=== PATIENT | male | born 1965 | race Caucasian/White ===

== ENCOUNTER 2016-12-10 04:24 | Emergency (ER) | payer MEDICAID ==
--- NOTE | ~2016-12-10 | CR253 ---
[facility] A Service of [facility] / [facility] RADIOLOGY TEXT RESULTS PATIENT: OZ CHERRY LOCATION: [facility] : 63 UNIT #: [id number] AGE: [address]: Mahamed Farias MD SEX: M ORDER DR: [id number] [facility] [address] [place], [place] [address] [id number] MR#: [id number] Acc #: [id number] NAME: OZ CHERRY : 1965 SEX: M STUDY DATE/TIME: 12/10/2016 4:54 UNIT: [facility] ROOM: STUDY DESCRIPTION: CR Tibia and Fibula 2 Views Rt Attending Physician: Roxie Hale A.P.R.N. Ordering Physician: Roxie Hale A.P.R.N. Primary Care Physician: Primary Care Physician No MEDICAL IMAGING REPORT This report is preliminary unless electronic signature is present EXAM Right tibia-fibula series 12/10/2016 HISTORY 51-year-old male in the ED complaining of right lower leg, ankle and foot pain after fall from ladder earlier today. TECHNIQUE AP and lateral radiographs of the right tibia and fibula. FINDINGS The examination is negative. No fracture or other acute osseous abnormality is demonstrated. Ankle is more completely included on separately reported ankle series. IMPRESSION Negative right tibia-fibula series. Dictated by... Hunter Bangura M.D. THIS IS AN ELECTRONICALLY VERIFIED REPORT Hunter Bangura M.D. at 12/17/2016 1:57 PM KOURTNEY/mike TD: 12/10/2016 06:37 JOB #: [id number] MEDICAL IMAGING REPORT Page 1 of 1 COPY
--- NOTE | ~2016-12-10 | CR21 ---
[facility] A Service of [facility] RADIOLOGY TEXT RESULTS PATIENT: OZ CHERRY LOCATION: [facility] : 63 UNIT #: [id number] AGE: [address]: Mahamed Farias MD SEX: M ORDER DR: [id number] [facility] [address] [place] [address] [place], [place] [address] [id number] MR#: [id number] Acc #: [id number] NAME: OZ CHERRY : 1965 SEX: M STUDY DATE/TIME: 12/10/2016 4:56 UNIT: [facility] ROOM: STUDY DESCRIPTION: CR Ankle Min 3 Views Rt Attending Physician: Roxie Hale A.P.R.N. Ordering Physician: Roxie Hale A.P.R.N. Primary Care Physician: Primary Care Physician No MEDICAL IMAGING REPORT This report is preliminary unless electronic signature is present EXAM Right ankle series 12/10/2016 HISTORY 51-year-old male in the ED complaining of right foot and ankle pain after fall from ladder earlier today. TECHNIQUE Three-view right ankle series. FINDINGS No fracture, dislocation or other acute osseous abnormality is demonstrated. IMPRESSION Negative right ankle series. Dictated by... Hunter Bangura M.D. THIS IS AN ELECTRONICALLY VERIFIED REPORT Hunter Bangura M.D. at 12/17/2016 1:57 PM KOURTNEY/mike TD: 12/10/2016 06:38 JOB #: [id number] MEDICAL IMAGING REPORT Page 1 of 1 COPY
--- NOTE | ~2016-12-10 | CR127 ---
[facility] A Service of [facility] RADIOLOGY TEXT RESULTS PATIENT: OZ CHERRY LOCATION: [facility] : 63 UNIT #: [id number] AGE: [address]: Mahamed Farias MD SEX: M ORDER DR: [id number] [facility] [address] [place], [place] [address] [id number] E MR#: [id number] Acc #: [id number] NAME: OZ CHERRY : 1965 SEX: M STUDY DATE/TIME: 12/10/2016 5:01 UNIT: [facility] ROOM: STUDY DESCRIPTION: CR Foot Complete Min 3 View Rt Attending Physician: Roxie Hale A.P.R.N. Ordering Physician: Roxie Hale A.P.R.N. Primary Care Physician: Primary Care Physician No MEDICAL IMAGING REPORT This report is preliminary unless electronic signature is present EXAM Right foot series 12/10/2016 HISTORY 51-year-old male in the ED complaining of right foot and ankle pain after fall from ladder earlier today. TECHNIQUE Three-view right foot series. FINDINGS No fracture, dislocation or other acute osseous abnormality is demonstrated. 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 IMPRESSION No acute osseous abnormality. Dictated by... Hunter Bangura M.D. THIS IS AN ELECTRONICALLY VERIFIED REPORT Hunter Bangura M.D. at 12/17/2016 1:57 PM KOURTNEY/mike TD: 12/10/2016 06:39 JOB #: [id number] MEDICAL IMAGING REPORT Page 1 of 1 COPY
[2016-12-10 06:13] LABS: BASOPHIL# 0.1 X10e3 (0-0.3); BASOPHIL% 0.4 % (0-2.5); EOSINOPHIL# 0.1 X10e3 (0-0.7); EOSINOPHIL% 0.8 % (0.0-7.0); HEMATOCRIT 45.5 % (38.0-50.0); HEMOGLOBIN 15.1 gm/dL (13.0-16.0); LYMPHOCYTE% 21.4 % (17.0-45.0); MEAN CELL VOLUME 99.9 FL (83-96); MEAN CORPUSCULAR HEMOGLOBIN 33.1 PG (28-34); MEAN CORPUSCULAR HGB CONC 33.2 g/dL (30-36); MEAN PLATELET VOLUME 7.8 FL (6.5-11.5); MONOCYTE# 1.1 X10e3 (0-1.0); MONOCYTE% 7.9 % (3.0-12.0); NEUTROPHIL# 9.9 X10e3 (1.5-7.1); NEUTROPHIL% 69.5 % (40-75); PLATELET COUNT 231 X10e3 (140-420); RED BLOOD COUNT 4.56 X10e (3.90-5.60); RED CELL DISTRIBUTION WIDTH 13.1 % (11.0-15.5); WHITE BLOOD COUNT 14.2 X10e3 (4.0-10.5)
[2016-12-10 06:15] LABS: DIFF IND NO
[2016-12-10 06:26] LABS: INR 0.9; PARTIAL THROMBOPLASTIN TIME 29.9 SECONDS (23.5-31.3); PROTHROMBIN TIME (PATIENT) 9.4 SECONDS (9.6-11.5)
[2016-12-10 06:44] LABS: ALBUMIN SERUM 4.2 g/dL (3.5-5.0); BUN/CREATININE RATIO 18.57; CALCIUM SERUM 8.9 mg/dL (8.4-10.2); CREATININE SERUM 0.7 mg/dL (0.6-1.4); GLOM FILT RATE Estimated 108.5 mL/min (>60); POTASSIUM 3.6 mmol/L (3.5-5.1); PROTEIN TOTAL SERUM 7.5 g/dL (6.0-8.3)
== END 2016-12-10 07:10 | disposition home or self-care (01) ==
LOC: CED 04:24
PROVIDERS: Nurse Practitioner
DX: S93.601A Unspecified sprain of right foot, initial encounter (principal); F17.210 Nicotine dependence, cigarettes, uncomplicated; W11.XXXA Fall on and from ladder, initial encounter; Y92.009 Unspecified place in unspecified non-institutional (private) residence as the place of occurrence of the external cause
CPT/HCPCS: 36415; 73590; 73610; 73630; 80053; 85025; 85379; 85610; 85730; 99284; G0480